=== PATIENT | male | born 1970 | race Caucasian/White ===

== ENCOUNTER → 2017-07-24 | Outpatient (CLI) | payer OTHER ==
[~2017-07-24] MED LIST: HYDROCODONE BIT1 T11 PO; NAPROSYN500 MG PO
== END | disposition home or self-care (01) ==
LOC: US 07-21 13:00
DX: I77.1 Stricture of artery (principal)

== ENCOUNTER → 2018-03-31 | Outpatient (CLI) | payer OTHER | END | disposition home or self-care (01) | LOC: US 11:00 | DX: I73.9 Peripheral vascular disease, unspecified (principal) ==

== ENCOUNTER 2019-02-20 12:47 | Emergency (ER) | payer OTHER ==
--- NOTE | ~2019-02-20 | EKG ---
[place], [place] ELECTROCARDIOGRAM REPORT NAME: MARLEY PEREYRA UNIT #: [id number] ROOM: DOCTOR: EPIPHANY DRAFT REPORT BIRTHDATE: [birth year] [facility] Test Date: 2019-02-20 Test Time: 12:48:40 Pat Name: MARLEY PEREYRA Department: ER Room: Gender: Gliding Pilot Instructor: Alia Fuentes : 1970 Requested By: YOBANI MAO Order Number: [id number] Reading MD: Wendy Ansari MD Measurements Intervals [place] Rate: 75 P: 46 IN: 152 QRS: 37 QRSD: 94 T: 16 QT: 392 QTc: 438 Interpretive Statements Sinus rhythm Baseline wander in lead(s) V4,V5 Normal ECG Electronically Signed On 03-06-2019 3:29:15 PDT by Wendy Ansari MD CM:EKGRPT:ELECTROCARDIOGRAM REPORT [id number] YOBANI SOMMER DRAFT REPORT YOBANI MAO DO
[2019-02-20 13:14] LABS: BASO # 0.1 10*3/uL (0.0-0.1); BASO % 0.4 % (0.0-1.0); EOS # 0.1 10*3/uL (0.0-0.4); HEMATOCRIT 45.4 % (42.0-52.0); HEMOGLOBIN 15.6 g/dl (14.0-18.0); LYMPH # 3.7 10*3/uL (1.3-4.4); MEAN CELL VOLUME 94.8 fl (80.0-94.0); MEAN CORPUSCULAR HGB 32.6 pg (27.0-31.0); MEAN CORPUSCULAR HGB CONC 34.4 g/dl (33.0-37.0); MEAN PLATELET VOLUME 9.1 fl (9.6-12.3); MONO # 0.6 10*3/uL (0.1-1.0); MONO % 4.9 % (3.0-9.0); NEUT # 7.4 10*3/uL (2.3-7.9); NEUT % 62.4 % (47.0-73.0); PLATELET COUNT AUTOMATED 255 10*3/uL (130-400); RED BLOOD COUNT 4.79 10*6/uL (4.50-5.90); WHITE BLOOD COUNT 11.9 10*3/uL (4.8-10.8)
[2019-02-20 13:25] LABS: ACT PARTIAL THROMBO TIME 22.5 SECONDS (20.0-32.1); INTERNATIONAL NORM RATIO 0.9 (2.0-3.5)
[2019-02-20 13:33] LABS: ALBUMIN 3.9 gm/dl (3.1-4.5); ALKALINE PHOSPHATASE 89 U/L (45-117); BUN 15 mg/dl (7-24); CHLORIDE 107 mmol/L (98-107); CREATININE 1.19 mg/dL (0.70-1.30); LIPASE 81 U/L (73-393); POTASSIUM 4.2 mmol/L (3.5-5.1); SGOT/AST 23 IU/L (3-35); SGPT/ALT 43 U/L (12-78); SODIUM 140 mmol/L (136-145); TOTAL PROTEIN 7.4 gm/dL (6.4-8.2)
[2019-02-20 13:41] LABS: TROPONIN I < 0.015 ng/ml (<0.045)
== END 2019-02-20 14:24 | disposition home or self-care (01) ==
LOC: ED 12:47
PROVIDERS: Emergency Medicine
DX: R55 Syncope and collapse (principal); R42 Dizziness and giddiness

== ENCOUNTER → 2019-02-20 | Outpatient (CLI) | payer OTHER | END | disposition home or self-care (01) | LOC: US 01-25 13:30 | DX: I73.9 Peripheral vascular disease, unspecified (principal); E78.1 Pure hyperglyceridemia; R73.01 Impaired fasting glucose; Z72.0 Tobacco use ==

== ENCOUNTER → 2019-11-28 | Day surgery (SDC) | payer OTHER ==
[~2019-11-28] VITALS: Ht 190.5 cm; Wt 103.9 kg
[~2019-11-28] MED LIST changes: +ASPIR LOW81 MG PO; +CLOPIDOGREL75 MG PO; +ROSUVASTATIN CA40 MG PO; +Synthroid,Levo25 MCG PO
[2019-11-28 10:16] VITALS: BP 143/81
[2019-11-28 11:11] VITALS: BP 143/81
[2019-11-28 11:26] VITALS: BP 115/82
[2019-11-28 11:41] VITALS: BP 115/82
== END | disposition home or self-care (01) ==
LOC: SDC 11-22 11:45
DX: Z12.11 Encounter for screening for malignant neoplasm of colon (principal); D12.4 Benign neoplasm of descending colon; D12.5 Benign neoplasm of sigmoid colon; E78.5 Hyperlipidemia, unspecified; E03.9 Hypothyroidism, unspecified; K57.30 Diverticulosis of large intestine without perforation or abscess without bleeding; E78.00 Pure hypercholesterolemia, unspecified; Z98.890 Other specified postprocedural states; Z79.82 Long term (current) use of aspirin; Z79.899 Other long term (current) drug therapy; Z87.891 Personal history of nicotine dependence